=== PATIENT | male | born 1975 | race Caucasian/White ===

== ENCOUNTER 2017-07-16 13:22 | Emergency (ER) | payer SELFPAY ==
[2017-07-16 13:33] VITALS: BP 126/86
--- NOTE | 2017-07-16 15:41 | XRay Report ---
Right hand Index finger 3 views: History: Trauma. Findings: There is avulsion chip fracture noted at the base of the distal phalanx of index finger right hand. Impression: Avulsion chip fracture distal phalanx.
[2017-07-16] MEDS ORDERED: NACL 0.9% 500 ML IR ONE (15:48)
[2017-07-16] MEDS ORDERED: NORCO 5/325 PO ONE (16:23)
[2017-07-16] MEDS ORDERED: BOOSTRIX IM ONE (16:23)
[2017-07-16] MEDS ORDERED: NACL 0.9% IR ONE (16:23)
[2017-07-16] MEDS ORDERED: ANCEF IM ONE (16:24)
[2017-07-16] MEDS ORDERED: TRIPLE ANTIBIOTIC TP ONE (16:24)
[2017-07-16] MEDS ORDERED: XYLOCAINE 1% 20 mL INFILTRATI ONE (16:24)
[2017-07-16] MEDS ORDERED: WATER FOR INJ (PF) 10 ML ONE (16:46)
--- NOTE | 2017-07-16 16:59 | Emergency Department Report ---
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 PT states today while he was at work, he accidentally put his R index finger in a spinning wheel. PT states it felt like he almost cut off his finger. PT states his finger is "hurting" now but he can not rate the pain. pt states he can still bend his finger. PT states his pain increased when he stopped holding pressure and he soaked his finger. pt unsure if TDap is UTD. PT denies other injuries MD Complaint: finger injury -: Sudden, hour(s) Location: right, upper extremity Quality: constant Consistency: constant Improves with: immobilization (and holding pressure ) Worsens with: other (betadine soak ) Associated Symptoms: denies other symptoms. denies: chest pain, headaches, nausea/vomiting Treatments Prior to Arrival: none - Related Data Previous Rx's Medication Instructions Recorded Last Taken Type Acetaminophen/Codeine [Tylenol #3] 1 tab PO Q6H PRN #12 tab 07/16/17 Unknown Rx Cephalexin [Keflex] 500 mg PO Q6HR #40 capsule 07/16/17 Unknown Rx Ibuprofen [Motrin] 600 mg PO Q8H PRN #15 tablet 07/16/17 Unknown Rx Allergies Allergy/AdvReac Type Severity Reaction Status Date / Time No Known Allergies Allergy Unverified 07/16/17 13:33 ED Review of Systems ROS: Stated complaint: RT INDEX FINGER LACERATION Other details as noted in HPI Comment: All other systems reviewed and negative Constitutional: no symptoms reported Gastrointestinal: denies: vomiting Musculoskeletal: as per HPI Skin: as per HPI ED Past Medical Hx - Past Medical History Previous Medical History?: No - Surgical History Past Surgical History?: Yes Additional Surgical History: Right Femur - Social History Smoking Status: Unknown if ever smoked Substance Use Type: None - Medications Home Medications: Home Medications Medication Instructions Recorded Confirmed Last Taken Type Acetaminophen/Codeine [Tylenol #3] 1 tab PO Q6H PRN #12 tab 07/16/17 Unknown Rx Cephalexin [Keflex] 500 mg PO Q6HR #40 capsule 07/16/17 Unknown Rx Ibuprofen [Motrin] 600 mg PO Q8H PRN #15 tablet 07/16/17 Unknown Rx ED Physical Exam - General Limitations: No Limitations General appearance: alert, in no apparent distress - Head Head exam: Present: atraumatic, normocephalic, normal inspection - Eye Eye exam: Present: normal appearance, PERRL, EOMI. Absent: conjunctival injection - ENT ENT exam: Present: normal exam, mucous membranes moist, normal external ear exam - Neck Neck exam: Present: normal inspection, full ROM - Respiratory Respiratory exam: Absent: respiratory distress, chest wall tenderness, accessory muscle use - Cardiovascular Cardiovascular Exam: Present: regular rate, normal rhythm - Extremities Exam Extremities exam: Present: tenderness. Absent: normal inspection, full ROM - Expanded Upper Extremity Exam Left General: Present: normal inspection Right General: Present: laceration, nail injury (#) (2). Absent: foreign body, amputation, avulsion Forearm Wrist exam: Present: normal inspection, full ROM. Absent: tenderness Hand Wrist exam: Present: tenderness, swelling, laceration, ecchymosis, subungual hematoma. Absent: normal inspection (3rd and 4th fingers webbed ), full ROM, deformity, amputation Hand L/R Back: 1 - laceration on the ulnar aspect of the R distal finger, jagged wound. involving the nail 2 - superfical laceration 3 - webbed 4 - superfical laceration 5 - superfical laceration Vascular: Present: normal capillary refill, radial pulse. Absent: vascular compromise - Back Exam Back exam: Present: normal inspection, full ROM - Neurological Exam Neurological exam: Present: alert, oriented X3, normal gait - Psychiatric Psychiatric exam: Present: normal affect, normal mood - Skin Skin exam: Present: warm, dry, intact ED Course Vital Signs 07/16/17 13:29 Temperature 98.4 F Pulse Rate 88 Respiratory 18 Rate Blood Pressure 126/86 O2 Sat by Pulse 100 Oximetry - Reevaluation(s) Reevaluation #1: 07/16/17 18:07 PT tolerated suture repair well, splint placed. pt nvi - Laceration /Wound Repair Right Distal Finger Wound Location: upper extremity (R index finger, radial aspect ) Wound Length (cm): 1 Wound's Depth, Shape: superficial Wound Explored: clean Irrigated w/ Saline (ccs): 200 Betadine Prep?: Yes Anesthesia: 1% Lidocaine Volume Anesthetic (ccs): 4 (digital block ) Wound Debrided: minimal Wound Repaired With: sutures Suture Size/Type: 5:0 Number of Sutures: 4 Layer Closure?: No Sterile Dressing Applied?: Yes Right Finger Wound Location: upper extremity (R distal finger, ulnar aspect ) Wound Length (cm): 2 Wound's Depth, Shape: irregular, contused tissue Wound Explored: no foreign body removed Irrigated w/ Saline (ccs): 200 Betadine Prep?: Yes Anesthesia: 1% Lidocaine Wound Debrided: minimal Wound Repaired With: sutures Suture Size/Type: 4:0 Number of Sutures: 6 Layer Closure?: No Sterile Dressing Applied?: Yes Progress: 18 gauge needle used to trepinate nail. after both lacerations repaired, dressing applied and finger was placed in splint. Right Hand Wound Location: upper extremity (R long finger ) Wound Length (cm): 2 Wound's Depth, Shape: superficial, linear Irrigated w/ Saline (ccs): 200 Betadine Prep?: Yes Wound Repaired With: Steri-strips (pt did not want more sutures. pt stated he just wanted site cleaned ) Sterile Dressing Applied?: Yes - Orthopedic Splinting/Casting Injury #1 Side: right Upper Extremity Injury Location: finger Upper Extremity Immobilizer: finger (other) (baseball finger splint placed by AIRCRAFT TECHNICIAN. ) - Pulse Oximetry Interpretation Digit-Finger Initial Pulse Oximetry Readin Actions Taken: none ED Medical Decision Making - Radiology Data Radiology results: report reviewed, image reviewed xr finger - distal avulsion chip fx - Differential Diagnosis fracture, contusion, laceration Critical Care Time: No Critical care attestation.: If time is entered above; I have spent that time in minutes in the direct care of this critically ill patient, excluding procedure time. ED Disposition Clinical Impression: Finger laceration Qualifiers: Encounter type: initial encounter Finger: index finger Damage to nail status: with damage Foreign body presence: without foreign body Laterality: right Qualified Code(s): S61.310A - Laceration without foreign body of right index finger with damage to nail, initial encounter Phalanx, distal fracture of finger Qualifiers: Encounter type: initial encounter Finger: index finger Fracture type: open Fracture alignment: displaced Laterality: right Qualified Code(s): S62.630B - Displaced fracture of distal phalanx of right index finger, initial encounter for open fracture Disposition: TO HOME OR SELFCARE Is pt being admited?: No Does the pt Need Aspirin: No Condition: Stable Instructions: Finger Fracture (ED), Splint Care (ED), Finger Laceration (ED) Additional Instructions: Wear your splint when up and active Wash your suture site at least twice a day and pat dry No driving or alcohol after taking Tylenol #3 Follow up with Ortho on Wednesday. If you can not be seen on Wednesday, Return to the ED for wound recheck your sutures will need to be in place for 10-14 days - or as directed by your orthopedic doctor Return to ED if fevers, chills, nausea, vomiting, redness to finger, drainage from finger or concerns Prescriptions: Acetaminophen/Codeine [Tylenol #3] 1 tab PO Q6H PRN #12 tab PRN Reason: Pain , Severe (7-10) Cephalexin [Keflex] 500 mg PO Q6HR #40 capsule Ibuprofen [Motrin] 600 mg PO Q8H PRN #15 tablet PRN Reason: Pain Referrals: PRIMARY CAREMD [Primary Care Provider] - 3-5 Days CONSTANITN GAMEZ MD [Staff Physician] - 3-5 Days Forms: Work/School Release Form(ED) Time of Disposition: 18:18
== END 2017-07-16 18:23 | disposition home or self-care (01) ==
LOC: ED 13:22
DX: S62.630B Displaced fracture of distal phalanx of right index finger, initial encounter for open fracture (principal); W31.89XA Contact with other specified machinery, initial encounter; Y93.89 Activity, other specified; Y99.9 Unspecified external cause status; Y92.89 Other specified places as the place of occurrence of the external cause
CPT/HCPCS: 29130; 73140; 90471; 90715; 96372; 99283; J0690; A6250